=== PATIENT | male | born 1985 | race American Indian/Alaskan Native ===

== ENCOUNTER 2022-01-10 17:39 | Emergency (ER) | payer SELFPAY ==
[2022-01-10 18:17] VITALS: BP 136/92
--- NOTE | 2022-01-10 20:11 | Emergency Department Report ---
ED Psych HPI - General Chief Complaint: Psych Stated Complaint: MENTAL EVAL Source: patient, EMS Mode of arrival: Ambulatory - History of Present Illness Initial Comments: Patient is a 36-year-old male who presents to the emergency department with complaint of anger issues. He states that he calls [place] who can get angry. Patient denies hearing any auditory hallucinations he denies visual hallucinat ions. He does not have any homicidal or suicidal ideation. - Related Data Previous Rx's Medication Instructions Recorded Last Taken Type Hydroxyzine HCl [hydrOXYzine] 50 mg PO BID PRN 7 Days #14 01/10/22 Unknown Rx Allergies Allergy/AdvReac Type Severity Reaction Status Date / Time No Known Allergies Allergy Unverified 01/10/22 18:18 ED Review of Systems ROS: Stated complaint: MENTAL EVAL Other details as noted in HPI Constitutional: denies: chills, fever Eyes: denies: eye pain, eye discharge, vision change ENT: denies: ear pain, throat pain Respiratory: denies: cough, shortness of breath, wheezing Cardiovascular: denies: chest pain, palpitations Endocrine: no symptoms reported Gastrointestinal: denies: abdominal pain, nausea, diarrhea Genitourinary: denies: urgency, dysuria Musculoskeletal: denies: back pain, joint swelling, arthralgia Skin: denies: rash, lesions Neurological: denies: headache, weakness, paresthesias Psychiatric: denies: anxiety, depression Hematological/Lymphatic: denies: easy bleeding, easy bruising ED Past Medical Hx - Medications Home Medications: Home Medications Medication Instructions Recorded Confirmed Last Taken Type Hydroxyzine HCl [hydrOXYzine] 50 mg PO BID PRN 7 Days #01/10/22 Unknown Rx ED Physical Exam - General Limitations: No Limitations General appearance: alert, in no apparent distress - Head Head exam: Present: atraumatic, normocephalic - Eye Eye exam: Present: normal appearance - ENT ENT exam: Present: mucous membranes moist - Neck Neck exam: Present: normal inspection - Respiratory Respiratory exam: Present: normal lung sounds bilaterally. Absent: respiratory distress - Cardiovascular Cardiovascular Exam: Present: regular rate, normal rhythm. Absent: systolic murmur, diastolic murmur, rubs, gallop - GI/Abdominal GI/Abdominal exam: Present: soft, normal bowel sounds - Rectal Rectal exam: Present: deferred - Extremities Exam Extremities exam: Present: normal inspection - Back Exam Back exam: Present: normal inspection - Neurological Exam Neurological exam: Present: alert, oriented X3 - Psychiatric Psychiatric exam: Present: normal affect, normal mood - Skin Skin exam: Present: warm, dry, intact, normal color. Absent: rash ED Course Vital Signs 01/10/22 17:39 Temperature 98.8 F Pulse Rate 86 Respiratory 18 Rate Blood Pressure 136/92 [Left] O2 Sat by Pulse 100 Oximetry ED Medical Decision Making - Medical Decision Making Patient is a 28-year-old male presents emergency department with complaint of psychiatric issue. He states that he has had some anger issues but does not currently have homicidal suicidal ideation or hallucinations. Given this and given that patient desires discharge will plan for discharge in place and have close outpatient follow-up. He requests hydroxyzine for anxiety. Critical care attestation.: If time is entered above; I have spent that time in minutes in the direct care of this critically ill patient, excluding procedure time. ED Disposition Clinical Impression: Anxiety Disposition: 01 HOME / SELF CARE / HOMELESS Is pt being admited?: No Does the pt Need Aspirin: No Condition: Stable Instructions: Managing Anxiety, Adult Prescriptions: Hydroxyzine HCl [hydrOXYzine] 50 mg PO BID PRN 7 Days #14 PRN Reason: Anxiety Referrals: LUIS FINNEY MD [Staff Physician] - 3-5 Days
== END 2022-01-10 21:00 | disposition home or self-care (01) ==
LOC: ED 17:39
DX: F41.9 Anxiety disorder, unspecified (principal)
CPT/HCPCS: 99283